=== PATIENT | female | born 1990 | race Caucasian/White ===

== ENCOUNTER 2019-10-19 15:17 | Emergency (ER) | payer MEDICAID, OTHER ==
[~2019-10-19] VITALS: Ht 157.5 cm; Wt 72.7 kg
[2019-10-19] MEDS ORDERED: PREN29TA4 PO (15:47)
[2019-10-19 15:49] LABS: BASO # 0.1 10^3/uL (0.0-0.2); BASO % 0.4 % (0.0-1.0); EOS # 0.1 10^3/uL (0.0-0.5); EOS % 0.8 % (0.0-3.0); HEMOGLOBIN 13.9 g/dl (12.0-15.5); LYMPH # 2.8 10^3/uL (1.5-5.0); LYMPH % 23.5 % (24.0-44.0); MEAN CORPUSCULAR HEMOGLOBIN 29.6 pg (27.0-33.0); MEAN CORPUSCULAR HGB CONC 33.1 g/dl (32.0-36.5); MEAN CORPUSCULAR VOLUME 89.6 fl (80.0-96.0); MONO # 0.6 10^3/uL (0.0-0.8); MONO % 4.8 % (0.0-5.0); NEUTROPHILS # 8.4 10^3/uL (1.5-8.5); NEUTROPHILS % 70.2 % (36.0-66.0); PLATELET COUNT, AUTOMATED 321 10^3/uL (150-450); RED BLOOD COUNT 4.69 10^6/uL (4.00-5.40); WHITE BLOOD COUNT 11.9 10^3/uL (4.0-10.0)
[2019-10-19] MEDS ORDERED: FLAG500T PO (17:02)
--- NOTE | 2019-10-19 17:59 | REPVR ---
PROCEDURE INFORMATION: Exam: US First Trimester, Transabdominal and US , Transvaginal Exam date and time: 10/19/2019 5:01 PM Age: 29 years old Clinical history: complicated by abdominal or pelvic pain; Left lower quadrant; First trimester; Gestational age or lmp: 8 weeks; ; Additional info: Vb/left pelvic pain R/O ectopic TECHNIQUE: Imaging protocol: Real-time transabdominal obstetrical ultrasound of the maternal pelvis and a first trimester , less than 14 weeks 0 days, with image documentation. Transvaginal imaging was used for better evaluation of the fetus and adnexa. COMPARISON: No relevant prior studies available. FINDINGS: There is suboptimal distention of the bladder which limits visualization of the uterus and adnexa on the transabdominal portion of the study.. Uterus: Transabdominally, the uterus measures 8.8 x 3.7 x 4.4 cm. The endometrial stripe is not well seen. Endovaginally, the uterus measures 8.7 x 4.3 x 5.8 cm. the endometrial stripe measures 1.9 cm in thickness and is heterogeneous in appearance. No intrauterine gestational sac. Cervix: Unremarkable. Right adnexa: Transabdominally, the right ovary is not seen separate structure. Endovaginally, the right ovary measures 2.1 x 2.5 x 1.4 cm. Subcentimeter follicles are present. Arterial blood flow seen in the right ovary on color Doppler and pulse Doppler examination. Left adnexa: Transabdominally, the left ovary measures 2.9 x 1.7 x 1.1 cm. Endovaginally, the left ovary measures 1.9 x 2.1 x 2.7 cm. Arterial blood flow seen in the left ovary on color Doppler and pulse Doppler examination. Intraperitoneal: No intraperitoneal free fluid. IMPRESSION: 1. No evidence of intrauterine . The absence of an intrauterine in the setting of a positive beta hCG measurement suggests the possibility of normal early intrauterine , recent miscarriage or ectopic . Serial beta hCG measurements recommended. Followup ultrasound might be considered. Electronically signed by: Ramandeep Damon On 10/19/2019 17:59:29 PM
[2019-10-19 18:18] LABS: CHLAMYDIA DNA AMPLIFICATION NEGATIVE (NEGATIVE); GC DNA AMPLIFICATION NEGATIVE (NEGATIVE)
[2019-10-19 18:32] VITALS: BP 113/59
== END 2019-10-19 18:36 | disposition home or self-care (01) ==
LOC: M ED 15:17
DX: O20.0 Threatened abortion (principal); O23.591 Infection of other part of genital tract in pregnancy, first trimester; Z3A.00 Weeks of gestation of pregnancy not specified

== ENCOUNTER → 2019-10-21 | Outpatient (CLI) | payer OTHER ==
[~2019-10-21] MED LIST: FLAG500T PO; PREN29TA4 PO
== END ==
LOC: M LAB 13:01
PROVIDERS: ATTEND Obstetrics & Gynecology
DX: O26.859 Spotting complicating pregnancy, unspecified trimester (principal)

== ENCOUNTER → 2019-10-29 | Outpatient (REF) | payer OTHER | LOC: M LAB REF 16:37 | PROVIDERS: ATTEND Nurse Practitioner Women's Health | DX: O02.1 Missed abortion (principal) ==

== ENCOUNTER → 2019-11-14 | Outpatient (CLI) | payer OTHER | LOC: M LAB 12:07 | PROVIDERS: ATTEND Nurse Practitioner Women's Health | DX: O02.1 Missed abortion (principal) ==

== ENCOUNTER → 2019-12-17 | Outpatient (REF) | payer OTHER ==
[2019-12-17 18:34] LABS: HEMOGLOBIN 12.2 g/dl (12.0-15.5); MEAN CORPUSCULAR HEMOGLOBIN 29.1 pg (27.0-33.0); MEAN CORPUSCULAR HGB CONC 32.1 g/dl (32.0-36.5); MEAN CORPUSCULAR VOLUME 90.7 fl (80.0-96.0); PLATELET COUNT, AUTOMATED 302 10^3/uL (150-450); RED BLOOD COUNT 4.19 10^6/uL (4.00-5.40); WHITE BLOOD COUNT 10.4 10^3/uL (4.0-10.0)
[2019-12-17 19:15] LABS: HCG, SERUM QUANTITATIVE 4772 MIU/ML
[2019-12-17 19:28] LABS: HIV 1&2 SCREEN CENTAUR NEGATIVE (NEGATIVE)
[2019-12-19 11:41] LABS: RUBELLA IgG QUALITATIVE IMMUNE (IMMUNE)
== END ==
LOC: M LAB REF 16:42
PROVIDERS: ATTEND Obstetrics & Gynecology
DX: O36.80X0 Pregnancy with inconclusive fetal viability, not applicable or unspecified (principal)

== ENCOUNTER → 2019-12-25 | Outpatient (CLI) | payer OTHER ==
--- NOTE | 2019-12-25 10:20 | REP ---
Clinical: Dating and viability. Technique: Transabdominal and transvaginal first trimester obstetrical ultrasound with color Doppler evaluation. Findings: Ultrasound examination demonstrates a single live early intrauterine . Gestational sac with yolk sac and pole identified. CRL of 2 mm corresponds to 5 weeks 5 days gestational age with estimated date of delivery 08/21/2020. heart rate equals 112 beats per minute. Small subchorionic hemorrhage measures 10 x 14 x 17 mm. Maternal ovaries are normal and a right corpus luteal cyst measuring 26 x 16 x 17 mm is suspected. Impression: 1. Single live early intrauterine measuring at 5 weeks 5 days gestational age. Complete anatomical assessment should be performed at 19-20 weeks. 2. Small subchorionic hemorrhage. Electronically Signed by Todd Velez MD 12/25/2019 10:11 A
== END ==
LOC: M RAD 09:23
PROVIDERS: ATTEND Obstetrics & Gynecology
DX: O36.80X0 Pregnancy with inconclusive fetal viability, not applicable or unspecified (principal); O20.8 Other hemorrhage in early pregnancy; Z3A.01 Less than 8 weeks gestation of pregnancy

== ENCOUNTER 2020-03-24 13:19 | Emergency (ER) | payer OTHER ==
[~2020-03-24] VITALS: Ht 157.5 cm; Wt 77.5 kg
[2020-03-24 13:20] VITALS: BP 112/54
[2020-03-24] MEDS ORDERED: NS 1,000 ML IV ONE (13:45)
[2020-03-24 14:16] LABS: BASO % 0.3 % (0.0-1.0); EOS # 0.1 10^3/uL (0.0-0.5); EOS % 0.7 % (0.0-3.0); HEMATOCRIT 33.2 % (36.0-47.0); HEMOGLOBIN 11.7 g/dl (12.0-15.5); LYMPH # 2.5 10^3/uL (1.5-5.0); LYMPH % 24.3 % (24.0-44.0); MEAN CORPUSCULAR HEMOGLOBIN 30.7 pg (27.0-33.0); MEAN CORPUSCULAR HGB CONC 35.2 g/dl (32.0-36.5); MEAN CORPUSCULAR VOLUME 87.1 fl (80.0-96.0); MONO # 0.3 10^3/uL (0.0-0.8); NEUTROPHILS # 7.4 10^3/uL (1.5-8.5); NEUTROPHILS % 71.4 % (36.0-66.0); PLATELET COUNT, AUTOMATED 254 10^3/uL (150-450); RED BLOOD COUNT 3.81 10^6/uL (4.00-5.40); WHITE BLOOD COUNT 10.4 10^3/uL (4.0-10.0)
[2020-03-24 14:45] LABS: ALT/SGPT 32 U/L (12-78); BILIRUBIN,DIRECT < 0.1 MG/DL (0.0-0.2); BILIRUBIN,TOTAL 0.2 MG/DL (0.2-1.0); BLOOD UREA NITROGEN 5 MG/DL (7-18); CALCIUM LEVEL 7.8 MG/DL (8.5-10.1); CARBON DIOXIDE LEVEL 23 MEQ/L (21-32); CHLORIDE LEVEL 109 MEQ/L (98-107); CK-MB VALUE MASS < 1.0 NG/ML (<3.6); CPK CREATINE PHOSPHOKINASE 49 U/L (26-192); CREATININE FOR GFR 0.49 MG/DL (0.55-1.30); FREE T4 0.98 NG/DL (0.76-1.46); GLOMERULAR FILTRATION RATE > 60.0 (>60); GLUCOSE, FASTING 106 MG/DL (70-100); MB/CK RELATIVE INDEX 2.04 (< OR =4); NT-PRO BNP 44 PG/ML (<125); SODIUM LEVEL 139 MEQ/L (136-145); TOTAL PROTEIN 6.8 GM/DL (6.4-8.2); TROPONIN I < 0.02 NG/ML (< 0.10)
--- NOTE | 2020-03-25 22:04 | ECGEPIP ---
[facility] - ED Test Date: 2020-03-24 Pat Name: KANDY MOREIRA Department: Room: - Gender: Female [employer] Officer: MELISSA : 1990 Requested By: QUE STATON PA-C. Order Number: [id number] Reading MD: Vish Rascon Measurements Intervals [place] Rate: 84 P: 57 GA: 143 QRS: 54 QRSD: 79 T: 24 QT: 362 QTc: 428 Interpretive Statements SINUS RHYTHM NSTTW ABNORMALITIES NO PRIORS FOR COMPARISON Electronically Signed on 03-25-2020 22:04:17 EDT by Vish Rascon
== END 2020-03-24 16:51 | disposition home or self-care (01) ==
LOC: M ED 13:19
DX: O99.89 Other specified diseases and conditions complicating pregnancy, childbirth and the puerperium (principal); R00.2 Palpitations; R06.02 Shortness of breath; Z3A.18 18 weeks gestation of pregnancy

== ENCOUNTER → 2020-04-19 | Outpatient (CLI) | payer OTHER ==
--- NOTE | 2020-04-20 01:53 | REP ---
REASON: anatomy. Multiple ultrasonographic images of the gravid uterus show a single living intrauterine gestation in the dima breech presentation. Doppler interrogation of the heart shows a heart rate of 140 beats per minute. The placenta is posterior and not low lying. The subjective amniotic fluid volume is within normal limits. The cervix measures 3.7 cm in length and is closed. Evaluation of the maternal adnexal spaces show no abnormalities. CHART: BPD 5.3 cm = 22 weeks 1 day HC 20.1 cm = 22 weeks 2 days AC 17.3 cm = 22 weeks 1 day FL 3.8 cm = 22 weeks 2 days The estimated weight is 486 grams, which is at the 42nd percentile for a 22-week 2-day gestational age. anatomical structures seen as unremarkable are as follows: Thalami, cavum septum pellucidum, cerebellum, cisterna magna, cerebral ventricles, upper lip, four-chamber heart, right ventricular outflow tract, stomach, cord insertion, three-vessel umbilical cord, kidneys, urinary bladder, and upper and lower extremities. The left ventricular outflow tract and spine were suboptimally visualized. IMPRESSION: Single living intrauterine gestation, as described above, with an estimated gestational age of 22 weeks 0 days via composite criteria and an estimated date of delivery of 08/23/2020 based on today's exam. No anomalies were detected; however, I recommend a followup examination to visualized those structures not well seen today, as described above.
== END ==
LOC: M WHC 11:11
PROVIDERS: ATTEND Obstetrics & Gynecology
DX: Z34.02 Encounter for supervision of normal first pregnancy, second trimester (principal); Z36.89 Encounter for other specified antenatal screening; Z3A.22 22 weeks gestation of pregnancy

== ENCOUNTER → 2020-05-18 | Outpatient (CLI) | payer OTHER ==
--- NOTE | 2020-05-18 14:39 | REP ---
REASON FOR EXAM: Followup anatomy, particularly left ventricular outflow tract and spine, which were suboptimally visualized on the prior exam of 04/19/2020. Multiple ultrasonographic images of the gravid uterus show a single living intrauterine gestation in the dima breech presentation. Doppler interrogation of the heart shows a heart rate of 139 beats per minute. The placenta is posterior and not low lying. The subjective amniotic fluid volume is within normal limits. The cervix measures 4.3 cm in length and is closed. Evaluation of the maternal adnexal spaces shows no abnormalities. BPD 6.2 cm = 25 weeks 1 day HC 24.7 cm = 26 weeks 6 days AC 21.1 cm = 25 weeks 5 days FL 5.1 cm = 27 weeks 2 days The estimated weight is 935 grams, which is at the 41st percentile for a 26 week 3 day gestational age. Today's examination shows the spine and outflow tracts to be within normal limits. This completes the anatomical screen. IMPRESSION: Single living intrauterine gestation, as described above with an estimated gestational age of 26 weeks 2 days via composite criteria and an estimated date of delivery of 08/22/2020 by today's exam. Electronically Signed by Keenan Patel DO 05/18/2020 05:26 P
== END ==
LOC: M RAD 10:05
PROVIDERS: ATTEND Advanced Practice Midwife
DX: Z34.82 Encounter for supervision of other normal pregnancy, second trimester (principal); Z3A.26 26 weeks gestation of pregnancy

== ENCOUNTER → 2020-06-02 | Outpatient (CLI) | payer OTHER ==
[2020-06-02 12:10] LABS: HEMATOCRIT 35.7 % (36.0-47.0); HEMOGLOBIN 11.9 g/dl (12.0-15.5); MEAN CORPUSCULAR HEMOGLOBIN 29.8 pg (27.0-33.0); MEAN CORPUSCULAR HGB CONC 33.3 g/dl (32.0-36.5); MEAN CORPUSCULAR VOLUME 89.3 fl (80.0-96.0); PLATELET COUNT, AUTOMATED 250 10^3/uL (150-450); WHITE BLOOD COUNT 14.3 10^3/uL (4.0-10.0)
== END ==
LOC: M LAB 10:35
PROVIDERS: ATTEND Obstetrics & Gynecology
DX: Z34.82 Encounter for supervision of other normal pregnancy, second trimester (principal); Z3A.00 Weeks of gestation of pregnancy not specified

== ENCOUNTER 2020-08-12 13:03 | Inpatient (IN) | payer MEDICAID, OTHER ==
[~2020-08-12] VITALS: Ht 157.5 cm; Wt 95.4 kg
[2020-08-12] MEDS ORDERED: OXYTOCIN 30 UNITS IN 0.9% NaCl 500ML IV BAG (J2590) As Ordered ONE (13:11)
[2020-08-12 13:24] VITALS: BP 145/89
[2020-08-12 13:57] VITALS: BP 133/87
[2020-08-12] MEDS ORDERED: DIBUCAINE 1% OINTMENT 30GM TOP PRN (16:45)
[2020-08-12] MEDS ORDERED: RHOGAM 300 MCG (1500 IU) INJ (J2790) IM SCH (16:45)
[2020-08-12] MEDS ORDERED: ACETAMINOPHEN TAB 650MG DOSE (2X325MG) PO PRN (16:45)
[2020-08-12] MEDS ORDERED: IBUPROFEN 800 MG TAB PO PRN (16:45)
[2020-08-12] MEDS ORDERED: ACETAMINOPHEN 500 MG TAB PO PRN (16:45)
[2020-08-12] MEDS ORDERED: METHYLERGONOVINE MALEATE 0.2 MG TAB PO PRN (16:45)
[2020-08-12] MEDS ORDERED: MEASLES,MUMPS,RUBELLA VACCINE INJ (MMR-II) (90707) SC SCH (16:45)
[2020-08-12] MEDS ORDERED: DOCUSATE SODIUM 100 MG CAP PO PRN (16:45)
[2020-08-13] MEDS: IBUPROFEN 600MG TAB PO PRN ×2 (01:55→11:17)
[2020-08-13 06:00] VITALS: BP 121/74
[2020-08-13 07:23] LABS: HEMATOCRIT 29.6 % (36.0-47.0); HEMOGLOBIN 9.9 g/dl (12.0-15.5); MEAN CORPUSCULAR HEMOGLOBIN 29.6 pg (27.0-33.0); MEAN CORPUSCULAR HGB CONC 33.4 g/dl (32.0-36.5); MEAN CORPUSCULAR VOLUME 88.6 fl (80.0-96.0); PLATELET COUNT, AUTOMATED 225 10^3/uL (150-450); RED BLOOD COUNT 3.34 10^6/uL (4.00-5.40); WHITE BLOOD COUNT 16.9 10^3/uL (4.0-10.0)
[2020-08-13] MEDS ORDERED: PRENATAL VITAMINS CHEWABLE TABLET PO SCH (09:00)
[2020-08-13] MEDS ORDERED: INFLUENZA QUADRIVALENT PF VACCINE 0.5ML SYRINGE IM ONE (10:00)
--- NOTE | 2020-08-16 14:08 | HPE ---
DATE OF ADMISSION: 08/12/2020 Parul is a 30-year-old female, para 3-0-0-3, who presented to labor and delivery with complaints of contractions and rupture of membranes. As per patient, she has recently, within the last half hour to 45 minutes, broken her water and had been balwinder every 3-4 minutes. Upon evaluation in labor and delivery, she was found to be fully dilated and grossly ruptured. At this point, a decision was made for admission. Her record reviewed, which is essentially unremarkable. PAST MEDICAL HISTORY: Denies. PAST SURGICAL HISTORY: Denies. SOCIAL HISTORY: Denies any alcohol, drugs, or cigarette smoking. REVIEW OF SYSTEMS: Unremarkable. MEDICATIONS: vitamin. ALLERGIES: No known drug allergies. PHYSICAL EXAMINATION: Normal-appearing female in active labor. ABDOMEN: Soft, nontender, nondistended, gravid. EXTREMITIES: No clubbing, cyanosis, or edema. VAGINAL EXAM: Fully dilated, 100% effaced. Fetus at +1 to + 2 gestation. ASSESSMENT: Intrauterine , in second phase of labor with spontaneous rupture of membranes. PLAN: Admit to labor and delivery. Anticipate delivery. JULIUS
--- NOTE | 2020-08-16 14:09 | DN ---
DATE OF DELIVERY: 08/12/2020. DESCRIPTION OF DELIVERY: Parul is a 30-year-old female para 3, who presented to labor and delivery with gross rupture of membranes and second phase of labor. Within minutes of presenting to labor and delivery, she delivered a live male infant in right occiput anterior position over an intact perineum. Apgars 8 and 9, weight 5 pounds 6 ounces. Placenta delivered spontaneously intact, three vessel cord. Perineum, vagina, cervix inspected, and no laceration noted. Estimated blood loss 250 cc. Both mother and baby in stable condition. MTDD
== END 2020-08-13 14:00 | disposition home or self-care (01) | DRG 560 ==
LOC: M LDO 13:03 → M LDI 13:05 → M OBS 18:19
PROVIDERS: ADMIT Obstetrics & Gynecology; ATTEND Obstetrics & Gynecology
PROC: 10E0XZZ Delivery of Products of Conception, External Approach (ICD-10-PCS; principal; 2020-08-12)
DX: O80 Encounter for full-term uncomplicated delivery (principal); Z37.0 Single live birth; Z3A.38 38 weeks gestation of pregnancy

== ENCOUNTER → 2020-10-27 | Outpatient (REF) | payer OTHER | LOC: M LAB REF 09:15 | PROVIDERS: ATTEND Physician Assistant | DX: Z11.59 Encounter for screening for other viral diseases (principal) ==

== ENCOUNTER → 2022-10-18 | Outpatient (REF) | payer OTHER | LOC: M LAB REF 16:53 | PROVIDERS: ATTEND Nurse Practitioner Family | DX: R68.89 Other general symptoms and signs (principal) ==

== ENCOUNTER 2022-11-01 02:32 | Emergency (ER) | payer OTHER ==
[~2022-11-01] VITALS: Ht 157.5 cm; Wt 81.8 kg
[2022-11-01 05:09] LABS: BASO # 0.1 10^3/uL (0.0-0.2); BASO % 0.3 % (0.0-1.0); EOS % 0.1 % (0.0-3.0); HEMATOCRIT 42.5 % (36.0-47.0); HEMOGLOBIN 14.1 g/dl (12.0-15.5); LYMPH # 2.2 10^3/uL (1.5-5.0); LYMPH % 11.6 % (24.0-44.0); MEAN CORPUSCULAR HEMOGLOBIN 28.4 pg (27.0-33.0); MEAN CORPUSCULAR HGB CONC 33.2 g/dl (32.0-36.5); MEAN CORPUSCULAR VOLUME 85.7 fl (80.0-96.0); MONO # 0.4 10^3/uL (0.0-0.8); MONO % 2.2 % (2.0-8.0); NEUTROPHILS # 15.9 10^3/uL (1.5-8.5); NEUTROPHILS % 85.3 % (36.0-66.0); PLATELET COUNT, AUTOMATED 363 10^3/uL (150-450); RED BLOOD COUNT 4.96 10^6/uL (4.00-5.40); WHITE BLOOD COUNT 18.6 10^3/uL (4.0-10.0)
[2022-11-01 05:31] LABS: LIPASE 29 U/L (12-53)
[2022-11-01 05:32] LABS: BILIRUBIN,DIRECT 0.2 MG/DL (<0.4)
[2022-11-01 05:33] LABS: ALBUMIN 4.4 G/DL (3.2-5.2); ALKALINE PHOSPHATASE 85 U/L (46-116); ALT/SGPT 15 U/L (7.0-40); AST/SGOT 16 U/L (<34); BILIRUBIN,TOTAL 0.6 MG/DL (0.3-1.2); BLOOD UREA NITROGEN 13 MG/DL (9-23); CALCIUM LEVEL 9.4 MG/DL (8.5-10.1); CARBON DIOXIDE LEVEL 27 MMOL/L (20-31); CHLORIDE LEVEL 104 MMOL/L (98-107); CREATININE FOR GFR 0.62 MG/DL (0.55-1.30); GLOMERULAR FILTRATION RATE > 60.0 (>60); GLUCOSE, FASTING 129 MG/DL (60-100); POTASSIUM SERUM 4.8 MMOL/L (3.5-5.1); SODIUM LEVEL 139 MMOL/L (136-145); TOTAL PROTEIN 8.1 G/DL (5.7-8.2)
[2022-11-01 06:01] LABS: HCG, SERUM QUALITATIVE NEGATIVE (NEGATIVE)
[2022-11-01] MEDS ORDERED: ISOVUE-370 76% 100ML VIAL As Ordered ONE (09:51)
[2022-11-01] MEDS ORDERED: ONDA4TAB6 PO (10:47)
[2022-11-01 11:00] VITALS: BP 101/56
== END 2022-11-01 11:02 | disposition home or self-care (01) ==
LOC: M ED 02:32
DX: K52.9 Noninfective gastroenteritis and colitis, unspecified (principal); Z87.42 Personal history of other diseases of the female genital tract